=== PATIENT | male | born 1960 | race Caucasian/White ===

== ENCOUNTER 2017-01-21 22:30 | Emergency (ER) | payer SELFPAY ==
[~2017-01-21] VITALS: Ht 185.4 cm; Wt 81.6 kg
[2017-01-21 22:36] VITALS: BP 100/64
[2017-01-21 23:17] LABS: BASOPHILS % (AUTO) 1.7 % (0.0-2.0); EOSINOPHILS % (AUTO) 2.5 % (0.0-3.0); LYMPHOCYTES % (AUTO) 30.3 % (20.0-45.0); MEAN CORPUSCULAR HEMOGLOBIN 30.3 PG (27.0-31.0); MEAN CORPUSCULAR HGB CONC 34.4 G/DL (32.0-36.0); MEAN CORPUSCULAR VOLUME 88 FL (80-99); MEAN PLATELET VOLUME 7.9 FL (6.5-10.1); MONOCYTES % (AUTO) 8.1 % (1.0-10.0); NEUTROPHILS % (AUTO) 57.5 % (45.0-75.0); PLATELET COUNT 110 K/UL (150-450); RED CELL DISTRIBUTION WIDTH 11.3 % (11.6-14.8); WHITE BLOOD COUNT 6.3 K/UL (4.8-10.8)
[2017-01-21 23:37] VITALS: BP 100/61
[2017-01-21 23:42] LABS: ANION GAP 15 (5-15); CARBON DIOXIDE 25 mEQ/L (20-30); CHLORIDE 100 mEQ/L (98-107); CREATININE 0.9 mg/dL (0.7-1.2); GLOMERULAR FILTRATION RATE > 60 mL/min (>60); HEMOLYSIS 14; SODIUM 140 mEQ/L (135-145); TROPONIN I < 0.30 ng/mL (<=0.30)
[2017-01-22 00:15] VITALS: BP 104/55
--- NOTE | 2017-01-22 00:27 | Emergency Room Report ---
History of Present Illness General Chief Complaint: Generalized Weakness Source: Patient Present Illness HPI This is a 56-year-old [place] male who presents with chief complaint of weakness in syncope. He has no past medical history. He just flew from [facility] to [place] to visit his brother who has stage IV cancer. He just got here yesterday. He still having jet lag. He had several drinks tonight. Also tried marijuana for the first time. He said he felt lightheaded and dizzy. When he stood up he had a near syncopal episode. His nephew caught him. He did not hit the ground. Per EMS his blood pressure systolic was in the 90s. Allergies: Coded Allergies: No Known Allergies (Unverified , 01/21/17) Patient History Past Medical History: see triage record, old chart reviewed Past Surgical History: other Pertinent Family History: none Social History: Reports: alcohol use Immunizations: other Reviewed Nursing Documentation: PMH: Agreed, PSxH: Agreed Nursing Documentation-PMH Past Medical History: No Stated History Review of Systems Constitutional: Reports: weakness Eye: Denies: blurred vision, eye pain ENT: Denies: ear pain, nose congestion, throat swelling Respiratory: Denies: cough, shortness of breath Cardiovascular: Denies: chest pain, palpitations Gastrointestinal: Denies: abdominal pain, diarrhea, nausea, vomiting Musculoskeletal: Denies: back pain, joint pain Skin: Denies: rash Neurological: Denies: headache, numbness Endocrine: Denies: increased thirst, increased urine Hematologic/Lymphatic: Denies: easy bruising All Other Systems: negative except mentioned in HPI Physical Exam Vital Signs Date Time Temp Pulse Resp B/P Pulse Ox O2 Delivery O2 Flow Rate FiO2 01/21/17 22:32 98.4 67 18 100/64 98 Room Air vitals with borderline blood pressure Sp02 EP Interpretation: reviewed, normal General Appearance: well appearing, no apparent distress, alert Head: normocephalic, atraumatic Eyes: bilateral eye EOMI, bilateral eye PERRL ENT: hearing grossly normal, normal pharynx Neck: full range of motion, supple, no meningismus Respiratory: chest non-tender, lungs clear, normal breath sounds Cardiovascular #1: regular rate, rhythm, no murmur Gastrointestinal: normal bowel sounds, non tender, no mass, no organomegaly, no bruit, non-distended Musculoskeletal: back normal, gait/station normal, normal range of motion Psychiatric: mood/affect normal Skin: warm/dry Medical Decision Making Diagnostic Impression: Primary Impression: Postural dizziness with near syncope ER Course Patient presents with near syncope. Probably secondary to combination of jet lag, alcohol and marijuana. He felt better after IV fluid. No evidence of CVA or TIA. No evidence of ACS, PE, dissection to name a few. We'll discharge home. Lab Results Impression labs unremarkable EKG Diagnostic Results Rate: normal Rhythm: NSR ST Segments: no acute changes Rhythm Strip Diag. Results EP Interpretation: yes Rate: 70 Rhythm: NSR, no PVC's, no ectopy CT/MRI/US Diagnostic Results CT/MRI/US Diagnostic Results : Imaging Test Ordered: CT head Impression negative per radiologist. Last Vital Signs Date Time Temp Pulse Resp B/P Pulse Ox O2 Delivery O2 Flow Rate FiO2 01/21/17 23:37 98.4 78 21 100/61 100 Room Air Status: improved Disposition: HOME, SELF-CARE Condition: Stable Patient Instructions: Near-Syncope, [id number] Additional Instructions: Followup with your DrDelmar in 7 days. Rest. Increase fluid. Return if symptom worsen. JESSE SIU M.D. Jan 22, 2017 00:27
[2017-01-22 00:34] VITALS: BP 104/55
--- NOTE | 2017-01-22 10:32 | Diagnostic Imaging Report ---
Indications: Syncope Technique: Spiral acquisitions obtained through the brain. Angled axial and coronal 5 x 5 mm slices were reconstructed. Total dose length product 1439 mGycm. CTDI vol(s) 70 mGy Comparison: None Findings: No acute hemorrhage or edema. No mass effect or midline shift. Normal melgar-white differentiation. Intact calvarium. Visualized orbits are occult. There is minimal ethmoid sinus because of thickening bilaterally. The mastoids are clear. Impression: Negative for acute intracranial bleed or mass effect Minimal ethmoid sinus disease This agrees with the preliminary interpretation provided overnight by [facility]. The CT scanner at [facility] is accredited by the [employer] and the scans are performed using protocols designed to limit radiation exposure to as low as reasonably achievable to attain images of sufficient resolution adequate for diagnostic evaluation.
--- NOTE | 2017-01-22 16:21 | Cardiology Report ---
APPROVED REPORT EKG Measurement Heart [id number] Normal sinus rhythm Cannot rule out Anterior infarct, age undetermined Abnormal ECG
== END 2017-01-22 00:35 | disposition home or self-care (01) ==
LOC: EDBD 22:30 → EMR 23:00
DX: R55 Syncope and collapse (principal)
CPT/HCPCS: 36415; 70450; 80048; 84484; 85025; 93005; 96374